=== PATIENT | male | born 1985 | race Two or more races ===

== ENCOUNTER 2016-07-27 03:04 | Emergency (ER) | payer SELFPAY ==
[~2016-07-27] VITALS: Ht 170.2 cm; Wt 73.9 kg
[2016-07-27] MEDS ORDERED: LIDOCAINE 2%HCL (LOCAL ANESTH.) INJ 20ML MDV IJ ONE (03:45)
[2016-07-27] MEDS ORDERED: TETANUS-DIPTH-ACEL PERTUSSIS 0.5ML SYRG IM ONE (05:45)
[2016-07-27] MEDS ORDERED: BACITRACIN-POLYMYXIN B TOPICAL OINT UD TOP ONE (06:08)
[2016-07-27] MEDS ORDERED: NEOMYCIN-BACITRACIN-POLYM UNITDOSE PKG TOP OINT TOP ONE (06:15)
[2016-07-27 06:40] VITALS: BP 117/71
== END 2016-07-27 06:48 | disposition home or self-care (01) ==
LOC: ER 03:04
DX: S61.411A Laceration without foreign body of right hand, initial encounter (principal); F17.210 Nicotine dependence, cigarettes, uncomplicated; W22.8XXA Striking against or struck by other objects, initial encounter; Y93.89 Activity, other specified; Y92.89 Other specified places as the place of occurrence of the external cause; Y99.8 Other external cause status
CPT/HCPCS: 12002; 73130; 90471; 90715

== ENCOUNTER 2016-08-04 08:29 | Emergency (ER) | payer SELFPAY ==
[~2016-08-04] VITALS: Ht 170.2 cm; Wt 77.1 kg
[2016-08-04 08:50] VITALS: BP 143/95
== END 2016-08-04 09:16 | disposition home or self-care (01) ==
LOC: ER 08:29
DX: S61.411D Laceration without foreign body of right hand, subsequent encounter (principal); F17.210 Nicotine dependence, cigarettes, uncomplicated; Z48.02 Encounter for removal of sutures

== ENCOUNTER 2016-11-18 15:43 | Emergency (ER) | payer SELFPAY ==
[~2016-11-18] VITALS: Ht 170.2 cm; Wt 71.7 kg
[2016-11-18 19:11] VITALS: BP 126/82
== END 2016-11-18 20:06 | disposition home or self-care (01) ==
LOC: ER 15:56
DX: S81.811A Laceration without foreign body, right lower leg, initial encounter (principal); F17.210 Nicotine dependence, cigarettes, uncomplicated; W45.8XXA Other foreign body or object entering through skin, initial encounter; Y93.89 Activity, other specified; Y92.89 Other specified places as the place of occurrence of the external cause; Y99.8 Other external cause status
CPT/HCPCS: 12002

== ENCOUNTER 2024-05-17 22:01 | Emergency (ER) | payer MEDICAID, OTHER ==
[~2024-05-17] VITALS: Ht 165.1 cm; Wt 79.5 kg
[2024-05-17] MEDS ORDERED: LORazepam 2MG/ML-1ML VIAL IV ONE (23:00)
[2024-05-17] MEDS ORDERED: SODIUM CHLORIDE 0.9% 1,000 ML IVB ONE (23:00)
[2024-05-17] MEDS ORDERED: CHL25C GT (23:29)
[2024-05-17] MEDS ORDERED: MULTCAP OR (23:29)
--- NOTE | 2024-05-18 00:10 | ED.PDOC ---
History of Present Illness HPI Comments 38 y/o M is [id number] ambulance for c/o auditory and visual hallucinations, today. Per EMS report, patient's family called after endorsing on patient claiming on seeing and hearing things following methamphetamine use. At time of assessment, patient comments on sole history of heavy alcohol use and beginning feeling weird and disoriented following his last drink, earlier this evening. He also complains of right arm tingling sensation since onset, this morning, and expresses concern on wanting a "blood test" to see if he was "poisoned" and inquires for assistance with his alcohol dependency. Patient denies any auditory or visual hallucinations, suicidal or homicidal ideations, chest pain, shortness of breath, nausea, vomiting, fever, or chills at this time. Chief Complaint: Hallucinations Time Seen by MD: 23:45 Primary Care Provider: NONE Reviewed Notes: Nurses Notes, Medications, Allergies Allergies: Coded Allergies: NO KNOWN ALLERGIES (Unverified , 07/27/16) Home Meds Active Scripts Chlordiazepoxide Hcl (Librium) 25 Mg Cp, 25 MG GT Q6HP PRN for 10 Days, #30 CAP 0 Refills Prov:MARV RODRIGES MD 05/17/24 Multiple Vitamins W/ Minerals (Meme-Min) Cap, 1 TAB OR DAILY for 100 Days, #100 CAP Prov:MARV RODRIGES MD 05/17/24 Mode of Arrival: EMS Past Medical History PAST MEDICAL HISTORY: Denies Surgical History: Denies all surgeries Family History Family History: Unknown Social History Smoker: Cigarettes, Less Than 1 Pack/Day Alcohol: Occasionally Drugs: Denies Drug Use Lives In: Home Neurological: reports: numbness (right arm ) Psychiatric: reports: others (hallucinations) All Other Systems: Reviewed and Negative (negative unless otherwise stated above or in HPI) Physical Exam General Appearance: No Apparent Distress, Normal, Other (anxious affect) HEENT: Normal ENT Inspection, Pharynx Normal, TMs Normal Neck: Full Range of Motion, Non-Tender, Normal, Normal Inspection Respiratory: Chest Non-Tender, Lungs Clear, No Accessory Muscle Use, No Respiratory Distress, Normal Breath Sounds Cardiovascular: No Edema, No JVD, No Murmur, No Gallop, Normal Peripheral Pulses, Regular Rate/Rhythm Breast Exam: Deferred Gastrointestinal: No Organomegaly, Non Tender, No Pulsatile Mass, Normal Bowel Sounds, Soft Genitalia: Deferred Pelvic: Deferred Rectal: Deferred Extremities: No calf tenderness, Normal capillary refill, Normal inspection, Normal range of motion, Non-tender, No pedal edema Musculoskeletal : Apperance: Normal Neurologic: Alert, business proposal rep II-XII nml as Tested, No Motor Deficits, Normal Mood, No Sensory Deficits, Other (GCS 15, anxious affect ) Cerebellar Function: Normal Reflexes: Normal Skin: Dry, Normal Color, Warm Lymphatic: No Adenopathy Was a procedure done? Was a procedure done?: No Differential Dx Considerations may include: substance abuse, intoxication, polysubstance abuse X-Ray, Labs, Meds, VS Vital Signs Date Time Temp Pulse Resp B/P (MAP) Pulse Ox O2 Delivery O2 Flow Rate FiO2 05/18/24 02:33 98.8 102 18 147/95 (112) 95 98.8 05/18/24 02:30 102 18 95 Room Air* 0 21 21 05/17/24 22:44 98.1 106 18 147/98 (114) 99 98.1 05/17/24 22:19 99.1 120 26 146/90 (108) 99 Time of 1ST Reevaluation: 00:15 Reevaluation 1ST: Unchanged Time of 2ND Reevaluation: 01:00 Reevaluation 2ND: Improved Patient Education/Counseling: Diagnosis, Treatment Family Education/Counseling: No Family Present Departure 1 Departure Time of Disposition: 01:00 Impression: Primary Impression: Shakiness Additional Impression: Alcohol abuse Disposition: 01 HOME / SELF CARE Condition: Stable Additional Instructions: Follow up with your primary physician Return to the ED for any worsening symptoms or concerns e-Prescriptions Chlordiazepoxide Hcl (Librium) 25 Mg Cp 25 MG GT Q6HP PRN for 10 Days, #30 CAP 0 Refills Prov: MARV RODRIGES MD 05/17/24 Multiple Vitamins W/ Minerals (Meme-Min) Cap 1 TAB OR DAILY for 100 Days, #100 CAP Prov: MARV RODRIGES MD 05/17/24 Discharged With: Self Critical Care Note Critical Care Time?: No Stability Stability form required: No Heart Score Heart Score: Heart Score Response (Comments) Value History N/A 0 EKG N/A 0 Age N/A 0 Risk Factors N/A 0 Troponin N/A 0 Total 0 I personally scribed for MARV RODRIGES MD ([email or web address]) on 05/18/24 at 00:10. Electronically submitted by Lokesh Cobb [email or web address]). MARV RODRIGES MD May 18, 2024 00:10
[2024-05-18 02:30] VITALS: PULSE 102; RESP 18; O2SAT 95
[2024-05-18 02:33] VITALS: BP 147/95; PULSE 102; RESP 18; TEMP 98.8; O2SAT 95
== END 2024-05-18 03:00 | disposition home or self-care (01) ==
LOC: EDBD 22:01 → ER 22:01
DX: R25.9 Unspecified abnormal involuntary movements (principal); F10.10 Alcohol abuse, uncomplicated; F17.210 Nicotine dependence, cigarettes, uncomplicated; Z79.899 Other long term (current) drug therapy; Y90.9 Presence of alcohol in blood, level not specified